=== PATIENT | female | born 1965 | race Caucasian/White ===

== ENCOUNTER 2024-06-19 22:54 | Inpatient (IN) | payer OTHER ==
[2024-06-19 23:18] LABS: Absolute Lymphocytes (CBC) 0.8 K/uL (0.7-4.9); Absolute Monocytes 0.7 K/uL (0.1-1.3); Basophils % 0.1 % (0-1.3); Eosinophils % 0.1 % (0-4.4); Hematocrit 26.5 % (36.0-45.0); Hemoglobin 8.7 g/dL (12.0-15.0); Lymphocytes % 6.2 % (15.3-44.8); MCH 30.4 pg (27.0-35.0); MCHC 32.9 g/dL (32.0-36.0); MCV 92.4 fL (80-100); MPV 8.7 fL (7.6-11.3); Monocytes % 5.5 % (3.3-12.3); Neutrophils % 88.1 % (41.7-73.7); Platelets 253 thou/uL (152-406); RBC Red Blood Cell Count 2.87 M/uL (3.86-4.86)
[2024-06-19 23:23] LABS: PT Prothrombin Time 11.1 SECONDS (9.4-12.5); PTT, Activated Partial Thromb 30.8 SECONDS (24.3-36.9); Protime INR 0.99
[2024-06-19] MEDS ORDERED: ONDANSETRON 4 MG/2 ML VIAL ONE (23:42)
[2024-06-19] MEDS ORDERED: NA CHLORIDE 0.9% 1,000 ML ONE (23:42)
[2024-06-19] MEDS ORDERED: FENTANYL CITR 100 MCG/2 ML ONE (23:44)
[2024-06-19 23:59] LABS: Albumin 3.5 g/dL (3.4-5.0); Albumin/Globulin Ratio 1.3 (1.1-1.8); Anion Gap 10.1 mEq/L (5.0-15.0); Bilirubin Direct 0.2 mg/dL (0-0.2); Bilirubin Indirect, Calculated 0.5 mg/dL (0.2-0.8); Bilirubin Total 0.7 mg/dL (0.2-1.0); Globulin 2.8 g/dL (2.3-3.5); Magnesium 2.1 mg/dL (1.6-2.4); Potassium 3.1 mEq/L (3.5-5.1); Protein, Total 6.3 g/dL (6.4-8.2); Troponin High Sensitivity 5.3 pg/mL (<58.9)
[2024-06-20] MEDS ORDERED: FENTANYL CITR 100 MCG/2 ML ONE (00:54)
[2024-06-20] MEDS ORDERED: POTASSIUM 25 MEQ EFFERV TAB ONE (00:55)
[2024-06-20 01:18] LABS: Band Neutrophils 10 % (0-1); Differential Total Cells Count 100; Lymphocytes 4 % (15-42); Monocytes 7 % (0-10); Segmented Neutrophils 79 % (40-80)
[2024-06-20 01:19] LABS: Blood Morphology Comment NOT SEEN (NOT SEEN); Platelet Estimate ADEQ
[2024-06-20] MEDS ORDERED: HYDROMORPHONE HCL 1 MG/ML INJ ONE (01:22)
[2024-06-20] MEDS ORDERED: ONDANSETRON 4 MG/2 ML VIAL IV PRN (01:24)
--- NOTE | 2024-06-20 01:24 | P.HP ---
Certification for Inpatient Patient admitted to: Inpatient With expected LOS: >2 Midnights Practitioner: I am a practitioner with admitting privileges, knowledge of patient current condition, hospital course, and medical plan of care. Services: Services provided to patient in accordance with Admission requirements found in Title 42 Section 412.3 of the Code of Federal Regulations Patient History Date of Service: 06/20/24 Reason for admission: History of fall History of Present Illness: 58-year-old female with past medical history of Stamford's chorea/disease who had a mechanical fall. Patient could not offer much history hence most of the history is obtained from chart review and also talking to the ER physician and the family at the bedside. Patient had a fall from standing position. Started having pain in her right hip. Family states that she was at home and fell by 7 PM and was found on ground complaining of right leg pain. Denies any chest pain or shortness of breath. No loss of consciousness denies any history of seizures Patient was assessed in the ER and was found to have Displaced intertrochanteric fracture of right femur-right and was admitted for further management . Allergies iodine Allergy (Mild, Verified 06/20/24 05:13) Rash Home medications list reviewed: Yes Home Medications: Rimegepant Sulfate [Nurtec Odt] 06/20/24 Rosuvastatin Calcium [Crestor] 06/20/24 - Past Medical/Surgical History Past Medical History: Reviewed- Non-Contributory -: Stamford disease Past Surgical History: Reviewed- Non-Contributory - Family History Family History: Reviewed- Non-Contributory - Social History Smoking Status: Never smoker Review of Systems 10-point ROS is otherwise unremarkable Physical Examination - Vital Signs Temperature: 97.2 F Blood Pressure: 140/64 Pulse: 72 Respirations: 18 Pulse Ox (%): 94 - Physical Exam General: Alert, Oriented x2, Moderate distress HEENT: Atraumatic, Normocephalic Neck: Supple Respiratory: Clear to auscultation bilaterally, Normal air movement Cardiovascular: Regular rate/rhythm, Normal S1 S2 Capillary refill: <2 Seconds Gastrointestinal: Soft and benign, W/out hepatosplenomegaly Musculoskeletal: No clubbing, No swelling, Tenderness Integumentary: No breakdown, No significant lesion Neurological: Other (Alert,Awake ) Lymphatics: No axilla or inguinal lymphadenopathy - Studies Laboratory Data (last 24 hrs) 06/19/24 06/19/24 06/19/24 23:02 23:02 23:02 WBC 13.60 H Hgb 8.7 L Hct 26.5 L Plt Count 253 PT 11.1 INR 0.99 APTT 30.8 Sodium 139 Potassium 3.1 L BUN 13 Creatinine 0.74 Glucose 172 H Magnesium 2.1 Total Bilirubin 0.7 AST 24 ALT 23 Alkaline Phosphatase 52 Assessment and Plan - Plan Displaced intertrochanteric fracture of right femur Pain control Orthopedic consultation Monitor closely Patient may need ORIF Stamford's disease Supportive management Continue home medications and titrate as needed Hypokalemia Replace potassium Leukocytosis Anemia of chronic disease Monitor CBC Transfuse as needed GI/DVT prophylaxis Advanced directive full code Discharge Plan: Home Plan to discharge in: Greater than 2 days - Advance Directives Does patient have a Living Will: No Does patient have a Durable POA for Healthcare: No - Code Status/Comfort Care Code Status: Full Code Time Spent Managing Pts Care (In Minutes): 48
--- NOTE | 2024-06-20 01:28 | ER ---
Nurse's Notes [facility] Name: Charissa Liz Age: 58 yrs Sex: Female : 1965 Arrival Date: 06/19/2024 Time: 22:54 Bed 4 Private MD: Diagnosis: Displaced intertrochanteric fracture of right femur-right;Fall on same level, unspecified Presentation: 06/19 23:16 Chief complaint: Patient's son or daughter states: She was at the house and fell jb4 between [id number]. We found her laying on the ground complaining of right leg pain. Care prior to arrival: None. Mechanism of Injury: Fall from standing position. Trauma event details: Injury occurred in the [facility]. 23:16 Acuity: HARRY 3 jb4 23:16 Method Of Arrival: Stretcher jb4 23:20 Coronavirus screen: At this time, the client does not indicate any symptoms associated jb4 with coronavirus-19. Ebola Screen: No symptoms or risks identified at this time. Initial Sepsis Screen: Does the patient meet any 2 criteria? HR > 90 bpm. Yes Does the patient have a suspected source of infection? No. Patient's initial sepsis screen is negative. Risk Assessment: Do you want to hurt yourself or someone else? Patient reports no desire to harm self or others. Onset of symptoms was June 19, 2024. 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 - Immunization history: Last tetanus immunization: unknown. - Infectious Disease History:: Denies. - Social history:: Smoking status: Patient denies any tobacco usage or history of. Screenin:30 [facility] ED Fall Risk Assessment (Adult) History of falling in the last 3 months, tm6 including since admission No falls in past 3 months (0 pts) Confusion or Disorientation No (0 pts) Intoxicated or Sedated No (0 pts) Impaired Gait No (0 pts) Mobility Assist Device Used No (0 pt) Altered Elimination No (0 pt) Score/Fall Risk Level 0 - 2 = Low Risk Oriented to surroundings, Maintained a safe environment, Educated pt \T\ family on fall prevention, incl call for assistance when getting out of bed. Abuse screen: Denies threats or abuse. Denies injuries from another. Nutritional screening: No deficits noted. Tuberculosis screening: No symptoms or risk factors identified. Primary Survey: 23:16 NO uncontrolled hemorrhage observed. A: The client is awake and alert. The airway is jb4 patent. Breathing/Chest: Spontaneous respiratory effort, equal unlabored respirations, breath sounds clear bilaterally, regular pattern, symmetrical chest rise and fall. Circulation: No external hemorrhage present. Regular and strong central pulse, skin warm/dry/normal color. Disability Pupils are equal, round, reactive to light and accommodation. Exposure/Environment: All clothing and personal items were removed. Clothing may be used as evidence. Items were removed and preserved. Secondary Survey: 23:16 HEENT: No deficits noted. Gastrointestinal: No deficits noted. : No signs and/or jb4 symptoms were reported regarding the genitourinary system. Musculoskeletal: Reports pain in right quadriceps. Assessment: 23:30 General: Appears in no apparent distress. Behavior is calm, cooperative. Pain: tm6 Complains of pain in right leg Pain currently is 10 out of 10 on a pain scale. Neuro: Level of Consciousness is awake, alert, obeys commands, Oriented to person, place, time, situation. Cardiovascular: No deficits noted. Patient's skin is warm and dry. Respiratory: Airway is patent Respiratory effort is even, unlabored, Respiratory pattern is regular, symmetrical. GI: No signs and/or symptoms were reported involving the gastrointestinal system. Abdomen is flat, non-distended. : No signs and/or symptoms were reported regarding the genitourinary system. EENT: No signs and/or symptoms were reported regarding the EENT system. Derm: No signs and/or symptoms reported regarding the dermatologic system. Musculoskeletal: Reports pain in right leg Pain is 10 out of 10 on a pain scale. 06/20 01:08 Reassessment: Patient appears in no apparent distress at this time. Patient and/or tm6 family updated on plan of care and expected duration. Pain level reassessed. Patient is alert, oriented x 3, equal unlabored respirations, skin warm/dry/pink. 03:09 Reassessment: Patient and/or family updated on plan of care and expected duration. Pain tm6 level reassessed. Patient is alert, oriented x 3, equal unlabored respirations, skin warm/dry/pink. report sent to [facility], confirmed by [place]. 03:09 Reassessment: purewick placed. tm6 Vital Signs: 06/19 20:45 BP 141 / 62; Pulse 109; Resp 16; Temp 99.4(O); Pulse Ox 100% on R/A; Weight 54.43 kg jb4 (R); Height 5 ft. 6 in. ; Pain 10/10; 06/20 01:07 BP 140 / 63; Pulse 106; Resp 16; Pulse Ox 100% on R/A; Pain 10/10; tm6 02:58 BP 111 / 58; Pulse 79; Resp 12; Pulse Ox 96% on R/A; Pain 0/10; tm6 06/19 20:45 Body Mass Index 19.37 (54.43 kg, 167.64 cm) jb4 06/19 20:45 Pain Scale: Adult jb4 06/20 01:07 Pain Scale: Adult tm6 02:58 Pain Scale: Adult tm6 Maynard Coma Score: 06/19 20:45 Eye Response: spontaneous(4). Motor Response: obeys commands(6). Verbal Response: jb4 oriented(5). Total: 15. Trauma Score (Adult): 20:45 Eye Response: spontaneous(1); Verbal Response: oriented(1); Motor Response: obeys jb4 commands(2); Systolic BP: > 89 mm Hg(4); Respiratory Rate: 10 to 29 per min(4); Lashell Score: 15; Trauma Score: 12 ED Course: 22:56 Patient arrived in ED. ra3 22:58 Rashid Kelly PA is PHCP. cp 22:58 Alex Verduzco MD is Attending Physician. cp 23:05 Inserted saline lock: 20 gauge in right antecubital area, using aseptic technique. af3 Blood collected. Flushed with 10 mL NS. 23:05 Ptt, Activated Sent. af3 23:05 Basic Metabolic Panel Sent. af3 23:05 CBC with Diff Sent. af3 23:05 LFT's Sent. af3 23:05 Magnesium Sent. af3 23:05 PT-INR Sent. af3 23:05 Troponin HS Sent. af3 23:18 Triage completed. jb4 23:21 Arm band placed on right wrist. jb4 23:30 Patient has correct armband on for positive identification. Bed in low position. Call tm6 light in reach. Side rails up X2. Provided Education on: use of call prado. Client placed on continuous cardiac and pulse oximetry monitoring. NIBP monitoring applied. Pulse ox on. NIBP on. tellers supervisor on. Door closed. Noise minimized. Warm blanket given. Pillow given. 23:52 XRAY Chest (1 view) In Process Unspecified. EDMS 23:52 XRAY Pelvis In Process Unspecified. EDMS 23:52 XRAY Femur RIGHT In Process Unspecified. EDMS 23:57 CT Head C Spine In Process Unspecified. EDMS 23:58 Marina Penaloza, LÁZARO is Primary Nurse. 6 06/20 01:26 Oswaldo Diallo MD is Hospitalizing Provider. cp 03:10 No provider procedures requiring assistance completed. Patient admitted, IV remains in [address] Administered Medications: 06/19 23:44 Not Given (Physician Discretion): morphineor iv 4 mg IVP once over 4 mins cp 23:49 Drug: fentaNYL (PF) IVP 25 mcg IVP once Route: IVP; Site: right antecubital; [facility] 06/20 01:03 Follow up: Response: No adverse reaction tm6 06/19 23:50 Drug: Ondansetron IVP 4 mg IVP once; over 2 minutes Route: IVP; Site: right antecubital;[facility] 06/20 01:03 Follow up: Response: No adverse reaction tm6 00:30 Drug: NS 0.9% IV 1000 ml IV at 500 ml/hr Per protocol Route: IV; Rate: 500 ml/hr; Site: [facility] right antecubital; 03:10 Follow up: Response: No adverse reaction; IV Status: Completed infusion; IV Intake: tm6 1000ml 01:02 Drug: fentaNYL (PF) IVP 25 mcg IVP once Route: IVP; Site: right antecubital; 6 01:25 Follow up: Response: No adverse reaction; No change in condition tm6 01:03 Drug: Potassium PO Effervescent Tablet 50 mEq PO once; dissolve in 4 ounces of water or tm6 juice Route: PO; 01:25 Follow up: Response: No adverse reaction tm6 01:31 Drug: HYDROmorphone IVP 1 mg IVP once Route: IVP; Site: right antecubital; 6 02:14 Follow up: Response: No adverse reaction; Marked relief of symptoms; Pain is decreased tm6 Medication: 06/19 23:30 VIS not applicable for this client. tm6 Intake: 06/20 03:10 IV: 1000ml; Total: 1000ml. tm6 Outcome: 01:27 Decision to Hospitalize by Provider. cp 03:10 Admitted to Med/surg accompanied by nurse, via stretcher, room 404, tm6 03:10 Condition: stable 03:10 Instructed on the need for admit, 03:25 Patient left the ED. tm6 Signatures: Dispatcher [employer] EDMS Rashid Kelly PA PA cp Bryson, James, RN RN jb4 Marina Penaloza RN RN tm6 Sandy Mccain ra3 Andreina Liu3 Corrections: (The following items were deleted from the chart) 06/19 23:20 23:16 BP 141 / 62; Pulse 109bpm; Resp 16bpm; Pulse Ox 100% RA; Temp 99.4F Oral; 54.43 jb4 kg Reported; Height 5 ft. 6 in.; BMI: 19.3; Pain 10/10, Adult; jb4 23:20 23:16 Lashell Score=15, Trauma Score=12, jb4 jb4 23:20 23:16 GCS: 15, jb4 jb4
--- NOTE | 2024-06-20 01:28 | EDPHYS ---
Physician Documentation [facility] Name: Charissa Liz Age: 58 yrs Sex: Female : 1965 Arrival Date: 06/19/2024 Time: 22:54 Bed 4 Private MD: ED Physician Alex Verduzco HPI: 06/20 23:10 This 58 yrs old Female presents to ER via Stretcher with complaints of Fall Injury - cp LOC. 23:10 Details of fall: The patient fell from an upright position, while walking. Onset: The cp symptoms/episode began/occurred this evening, unwitnessed fall. 23:10 Associated injuries: The patient sustained right upper leg, decreased range of motion, cp painful injury. 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 - Immunization history: Last tetanus immunization: unknown. - Infectious Disease History:: Denies. - Social history:: Smoking status: Patient denies any tobacco usage or history of. ROS: 23:15 Constitutional: Negative for body aches, chills, fever, poor PO intake, cp 23:15 Eyes: Negative for injury, pain, redness, and discharge, cp 23:15 Neck: Negative for pain with movement, pain at rest, stiffness, 23:15 Cardiovascular: Negative for chest pain, 23:15 Respiratory: Negative for cough, shortness of breath, wheezing, 23:15 Abdomen/GI: Negative for abdominal pain, vomiting, diarrhea, constipation, 23:15 MS/extremity: Positive for decreased range of motion, pain, of the right upper leg, 23:15 Neuro: Positive for loss of consciousness, 23:15 All other systems are negative, Exam: 23:20 Constitutional: The patient appears in no acute distress, alert, awake, cp non-diaphoretic, non-toxic, well developed, well nourished, in obvious pain, uncomfortable, 23:20 Head/Face: Normocephalic, atraumatic. cp 23:20 Eyes: Periorbital structures: appear normal, Conjunctiva: normal, no exudate, no injection, Sclera: no appreciated abnormality, Lids and lashes: appear normal, bilaterally, 23:20 ENT: External ear(s): are unremarkable, Nose: is normal, Mouth: Lips: moist, Oral mucosa: pink and intact, moist, Posterior pharynx: is normal, airway is patent, no erythema, no exudate, 23:20 Chest/axilla: Inspection: normal, Palpation: is normal, no crepitus, no tenderness, 23:20 Cardiovascular: Rate: tachycardic, Rhythm: regular, Edema: is not appreciated, JVD: is not appreciated, 23:20 Respiratory: the patient does not display signs of respiratory distress, Respirations: normal, no use of accessory muscles, no retractions, labored breathing, is not present, Breath sounds: are clear throughout, no decreased breath sounds, no stridor, no wheezing, 23:20 Abdomen/GI: Inspection: abdomen appears normal, Palpation: abdomen is soft and non-tender, in all quadrants, 23:20 Back: vertebral tenderness, is not appreciated, 23:20 Musculoskeletal/extremity: Extremities: noted in the right upper leg: decreased ROM, deformity, pain, tenderness, 23:20 Neuro: Orientation: no acute changes, per family, Mentation: no acute changes, per family, Motor: moves all fours, Sensation: no obvious gross deficits, Vital Signs: 20:45 BP 141 / 62; Pulse 109; Resp 16; Temp 99.4(O); Pulse Ox 100% on R/A; Weight 54.43 kg jb4 (R); Height 5 ft. 6 in. ; Pain 10/10; 06/20 01:07 BP 140 / 63; Pulse 106; Resp 16; Pulse Ox 100% on R/A; Pain 10/10; tm6 02:58 BP 111 / 58; Pulse 79; Resp 12; Pulse Ox 96% on R/A; Pain 0/10; tm6 06/19 20:45 Body Mass Index 19.37 (54.43 kg, 167.64 cm) [facility] 06/19 20:45 Pain Scale: Adult jb4 06/20 01:07 Pain Scale: Adult tm6 02:58 Pain Scale: Adult tm6 Lashell Coma Score: 06/19 20:45 Eye Response: spontaneous(4). Motor Response: obeys commands(6). Verbal Response: jb4 oriented(5). Total: 15. Trauma Score (Adult): 20:45 Eye Response: spontaneous(1); Verbal Response: oriented(1); Motor Response: obeys jb4 commands(2); Systolic BP: > 89 mm Hg(4); Respiratory Rate: 10 to 29 per min(4); Lashell Score: 15; Trauma Score: 12 MDM: 23:02 Patient medically screened. cp 06/20 00:36 ED course: msg left on voicemail of DR Ruff concerning right hip fracture for consult. cp no answer. 01:14 ED course: msg left on voicemail of DR Ruff for consult. no answer. cp 01:30 Data reviewed: vital signs, nurses notes, lab test result(s), radiologic studies, CT cp scan, plain films, I have discussed the patient's presentation/case with the attending Emergency Department Physician; and as a result, I will admit patient, initiate a consult, with an orthopedic surgeon. 01:30 Differential diagnosis: closed head injury, contusion, fracture, multiple trauma. cp Management of patient was discussed with the following: Hospitalist: DR Diallo will admit after discussion. I considered the following discharge prescriptions or medication management in the emergency department Medications were administered in the Emergency Department. See MAR. Independent interpretation of the following test(s) in the Emergency Department EKG: See my EKG interpretation above. 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 Counseling: I had a detailed discussion with the patient and/or guardian regarding the historical points, exam findings, and any diagnostic results supporting the discharge/admit diagnosis, lab results, radiology results, the need for further work-up and treatment in the hospital. 06/19 23:01 Order name: Basic Metabolic Panel; Complete Time: 00:48 cp 06/20 00:49 Interpretation: Normal except: K 3.1; GLUC 172. cp 06/19 23:01 Order name: CBC with Diff; Complete Time: 01:21 cp 06/20 00:49 Interpretation: Normal except: WBC 13.60; RBC 2.87; HGB 8.7; HCT 26.5; AMAYA% 88.1; LYM% cp 6.2; NEUT A 12.0. 06/19 23:01 Order name: LFT's; Complete Time: 00:48 cp 06/20 00:49 Interpretation: Normal except: TP 6.3. cp 06/19 23:01 Order name: Magnesium; Complete Time: 00:48 cp 06/19 23:01 Order name: PT-INR; Complete Time: 00:48 cp 06/19 23:01 Order name: Troponin HS; Complete Time: 00:48 cp 06/19 23:01 Order name: Ptt, Activated; Complete Time: 00:48 cp 06/19 23:25 Order name: Manual Differential; Complete Time: 01:21 EDMS 06/20 01:29 Order name: Urinalysis w/ reflexes EDMS 06/20 01:29 Order name: CBC with Automated Diff EDMS 06/20 01:29 Order name: CBC with Automated Diff EDMS 06/20 01:29 Order name: Comprehensive Metabolic Panel EDMS 06/20 01:29 Order name: Comprehensive Metabolic Panel EDMS 06/19 23:01 Order name: XRAY Chest (1 view) cp 06/19 23:01 Order name: XRAY Pelvis cp 06/19 23:01 Order name: XRAY Femur RIGHT cp 06/19 23:02 Order name: CT Head C Spine cp 06/20 01:29 Order name: CONS Physician Consult EDMS 06/19 23:01 Order name: Cardiac monitoring; Complete Time: 23:05 cp 06/19 23:01 Order name: EKG - Nurse/Tech; Complete Time: 23:05 cp 06/19 23:01 Order name: IV Saline Lock; Complete Time: 23:05 cp 06/19 23:01 Order name: Labs collected and sent; Complete Time: 23:05 cp 06/19 23:01 Order name: O2 Per Protocol; Complete Time: 23:33 cp 06/19 23:01 Order name: O2 Sat Monitoring; Complete Time: 23:33 cp Administered Medications: 06/19 23:44 Not Given (Physician Discretion): morphineor iv 4 mg IVP once over 4 mins cp 23:49 Drug: fentaNYL (PF) IVP 25 mcg IVP once Route: IVP; Site: right antecubital; jb4 06/20 01:03 Follow up: Response: No adverse reaction tm6 06/19 23:50 Drug: Ondansetron IVP 4 mg IVP once; over 2 minutes Route: IVP; Site: right antecubital;jb4 06/20 01:03 Follow up: Response: No adverse reaction tm6 00:30 Drug: NS 0.9% IV 1000 ml IV at 500 ml/hr Per protocol Route: IV; Rate: 500 ml/hr; Site: tm6 right antecubital; 03:10 Follow up: Response: No adverse reaction; IV Status: Completed infusion; IV Intake: tm6 1000ml 01:02 Drug: fentaNYL (PF) IVP 25 mcg IVP once Route: IVP; Site: right antecubital; tm6 01:25 Follow up: Response: No adverse reaction; No change in condition tm6 01:03 Drug: Potassium PO Effervescent Tablet 50 mEq PO once; dissolve in 4 ounces of water or tm6 juice Route: PO; 01:25 Follow up: Response: No adverse reaction tm6 01:31 Drug: HYDROmorphone IVP 1 mg IVP once Route: IVP; Site: right antecubital; tm6 02:14 Follow up: Response: No adverse reaction; Marked relief of symptoms; Pain is decreased tm6 Disposition Summary: 06/20/24 01:27 Hospitalization Ordered Notes: Hospitalization Status: Inpatient Admission cp Provider: Oswaldo Diallo cp Location: Telemetry/MedSurg (Inpatient) cp Condition: Stable cp Problem: new cp Symptoms: have improved cp Bed/Room Type: Standard cp Room Assignment: 404(06/20/24 01:47) kl Diagnosis - Displaced intertrochanteric fracture of right femur - right cp - Fall on same level, unspecified cp Forms: - Medication Reconciliation Form cp - SBAR form cp - Leadership Thank You Letter cp Addendum: 06/28/2024 01:14 I was immediately available for consultation during this patient's visit. I did not e c2 personally see the patient or discuss the patient with the JON. . Signatures: Dispatcher [employer] Libia East RN RN Rashid Ascencio PA PA cp Bryson, James, RN RN jb4 Alex Verduzco MD MD ec2 Marina Penaloza RN RN tm6 Corrections: (The following items were deleted from the chart) 06/20 01:15 00:36 ED course: msg left on voicemail of DR Ruff concerning right hip fracture. cp cp 01:47 01:27 cp anita
[2024-06-20 04:09] VITALS: BMI 16.9
[2024-06-20] MEDS: NA CHLORIDE 0.9% 1,000 ML IV SCH (04:51)
[2024-06-20] MEDS: MORPHINE 2 MG/ML SYR IV PRN (07:05)
--- NOTE | 2024-06-20 09:20 | CON ---
Date of Consultation: 06/20/2024 Reason For Consultation: Right hip pain. History Of Present Illness: Charissa is a 58-year-old female with past medical history of Catron's disease presented to the ER last night after a fall onto her right side and subsequently inability to bear weight. The patient states that she is normally ambulatory after the fall. She reported increased pain to the right hip and inability to ambulate. She was brought to the procedure room and had x-rays that mass demonstrated right intertrochanteric femur fracture. The patient denies any other musculoskeletal complaints at this time. Review of Systems: As above, otherwise negative. Past Medical History: Includes Catron's disease. Family History: Reviewed and noncontributory. Social History: Denies tobacco abuse. Lives at home. Physical Examination: General: No apparent distress. HEENT: Normocephalic, atraumatic. Neck: Supple. Cardiovascular: Brisk cap refill to all digits. Chest: Nonlabored breathing. Abdomen: Nondistended. Psychiatric: Responsive to exam. Musculoskeletal: Right lower extremity, tenderness to palpation over the right hip. Pain with range of motion of the right hip without tenderness over the knee, tibia, foot, or ankle. Sensation grossly intact to the dorsal and plantar foot. Brisk cap refill distally. Positive firing of EPL and FPL. Left lower extremity, functional range of motion without pain. No gross deformities. No obvious dislocations. Bilateral upper extremities, functional range of motion without pain. No gross deformities. No obvious dislocations. Diagnostic Studies: X-rays of the right femur demonstrate displaced intertrochanteric femur fracture. Assessment And Plan: Charissa is a 58-year-old female with right subtrochanteric femur fracture. I discussed with the patient at length her diagnosis as well as treatment plan. Given her displaced unstable fracture pattern, recommended surgical fixation of intramedullary device. Risks and benefits associated with the procedure were discussed with the patient at length and she expressed understanding. We will proceed with surgical fixation tomorrow as the patient does have some underlying electrolyte abnormalities as well as anemia. We will await medical clearance to proceed. CV/MODL Voice ID: [id number] Report ID: [id number] ARIK
[2024-06-20] MEDS: HYDROCODONE/APAP 5/325 MG TAB PO PRN (09:52)
[2024-06-20] MEDS ORDERED: POTASSIUM CL 40 MEQ in NA CHLORIDE 0.9% 500 ML IV SCH (10:00)
[2024-06-20] MEDS: KCL 20 MEQ/100 mL IVPB 20 MEQ/100 ML BAG IV SCH (10:38)
[2024-06-20] MEDS: ENOXAPARIN 40 MG/0.4 ML SQ SCH (10:42)
--- NOTE | 2024-06-20 14:06 | EKG ---
Test Date: 2024-06-20 Test Time: 02:48:51 Container Repairer: MEASUREMENT RESULTS: Intervals: Rate: 83 WA: 132 QRSD: 76 QT: 364 QTc: 427 [place]: P: 68 WA: 132 QRS: 62 T: 43 INTERPRETIVE STATEMENTS: Normal sinus rhythm Normal ECG Compared to ECG 11/15/2014 16:10:25 No significant changes Electronically Signed On 06-20-24 14:05:10 CDT by Chucky Ac
--- NOTE | 2024-06-20 14:50 | RAD REPORT ---
EXAM DESCRIPTION: CT - Head C Spine Mpr Wo Con - 06/19/2024 11:55 pm CLINICAL HISTORY: Fall COMPARISON: None. TECHNIQUE: CT HEAD AND CERVICAL SPINE WITHOUT CONTRAST on 06/19/2024 11:02 PM CDT This exam was performed according to our departmental dose-optimization program, which includes autom ated exposure control, adjustment of the mA and/or kV according to patient size and/or use of iterati ve reconstruction technique. FINDINGS: Brain: There is no acute hemorrhage, mass effect or midline shift. -white differentiat ion is preserved. There is no hydrocephalus. There is no significant volume loss for age. The calvarium is intact. Orbits and globes are unremarkable. The paranasal sinuses are clear. Mastoid air cells are clear. Cervical Spine: There is no acute fracture. Alignment is anatomic. There is mild bilateral upper cerv ical facet arthritis. There is mild narrowing of the C6-7 disc. Vertebral body heights are preserved. Soft tissues are unre markable. IMPRESSION: No acute postraumatic findings. Electronically signed by: Frank Singh MD 06/20/2024 12:37 AM CDT Due to temporary technical issues with the PACS/Fluency reporting system, reports are being signed by the in house radiologists without review as a courtesy to insure prompt reporting. The interpreting radiologist is fully responsible for the content of the report.
--- NOTE | 2024-06-20 15:09 | P.PN ---
Subjective Date of Service: 06/20/24 Chief Complaint: History of fall Patient complaining of pain in her right hip. Right hip is swollen. Physical Examination - Vital Signs Temperature: 99 F Blood Pressure: 139/67 Pulse: 89 Respirations: 16 Pulse Ox (%): 96 - Studies Laboratory Data (last 24 hrs) 06/19/24 06/19/24 06/19/24 23:02 23:02 23:02 WBC 13.60 H Hgb 8.7 L Hct 26.5 L Plt Count 253 PT 11.1 INR 0.99 APTT 30.8 Sodium 139 Potassium 3.1 L BUN 13 Creatinine 0.74 Glucose 172 H Magnesium 2.1 Total Bilirubin 0.7 AST 24 ALT 23 Alkaline Phosphatase 52 Assessment And Plan - Plan Physical examination General: Alert and oriented x3, NAD, HEENT: Conjunctiva not pale, anicteric sclera Neck: Supple, no elevated JVD Heart: Heart sounds 1 and 2 normal, regular rhythm, normal rate, no pedal edema Lungs: Clear to auscultation bilaterally, adequate breath sounds bilaterally, no rhonchi or crackles. Abdomen: Soft, nondistended, nontender, normal bowel sounds. Extremities: lateral aspect of right hip is swollen and tender. Skin: Normal skin turgor, no rash, no nodules or ulcers. Neuro: No focal motor deficit. Normal speech. Psychiatry: Dysphoric. Assessment and plan Displaced intertrochanteric fracture of right femur Patient seen and evaluated by orthopedic Dr. Speedy Ruff is planning ORIF tomorrow. Analgesics as needed Optimize electrolytes [place]'s disease Supportive measures Continue home medications. Hypokalemia Replace potassium Leukocytosis Anemia of chronic disease Monitor CBC Transfuse as needed for hemoglobin less than 8. DVT prophylaxis: Lovenox Advanced directive: full code
[2024-06-21 07:48] LABS: Absolute Lymphocytes (CBC) 0.8 K/uL (0.7-4.9); Absolute Monocytes 0.7 K/uL (0.1-1.3); Absolute Neutrophil 5.4 K/uL (1.8-8.0); Basophils % 0.4 % (0-1.3); Eosinophils % 0.5 % (0-4.4); Hematocrit 21.5 % (36.0-45.0); Hemoglobin 7.1 g/dL (12.0-15.0); MCH 30.6 pg (27.0-35.0); MCHC 33.1 g/dL (32.0-36.0); MCV 92.4 fL (80-100); MPV 8.1 fL (7.6-11.3); Monocytes % 10.5 % (3.3-12.3); Neutrophils % 77.6 % (41.7-73.7); Platelets 209 thou/uL (152-406); RBC Red Blood Cell Count 2.33 M/uL (3.86-4.86); Red Cell Distribution Width 14.5 % (12.1-15.2)
[2024-06-21 08:08] LABS: Albumin 2.8 g/dL (3.4-5.0); Bilirubin Total 1.2 mg/dL (0.2-1.0); Globulin 2.8 g/dL (2.3-3.5); Protein, Total 5.6 g/dL (6.4-8.2)
[2024-06-21] MEDS ORDERED: NA CHLORIDE 0.9% 250 ML IV SCH (10:00)
--- NOTE | 2024-06-21 13:22 | P.PN ---
Subjective Date of Service: 06/21/24 Chief Complaint: History of fall Patient has no new complaint She states her pain is well-controlled. Physical Examination - Vital Signs Temperature: 97.5 F Blood Pressure: 129/58 Pulse: 89 Respirations: 12 Pulse Ox (%): 97 Assessment And Plan - Plan Physical examination General: Alert and oriented x3, NAD, Neck: Supple, no elevated JVD Heart: Heart sounds 1 and 2 normal, regular rhythm, normal rate, no pedal edema Lungs: Clear to auscultation bilaterally, adequate breath sounds bilaterally, no rhonchi or crackles. Abdomen: Soft, nondistended, nontender, normal bowel sounds. Skin: Normal skin turgor, no rash, no nodules or ulcers. Neuro: No focal motor deficit. Assessment and plan Displaced intertrochanteric fracture of right femur Orthopedic Dr. Ruff is following. Dr. Ruff is planning ORIF tomorrow as no anesthesiologist available today Analgesics as needed Optimize electrolytes [place]'s disease Supportive measures Continue home medications. Hypokalemia Replace potassium Leukocytosis Anemia of chronic disease Monitor CBC Transfuse PRBC today, target hemoglobin of greater than 8. DVT prophylaxis: Lovenox Advanced directive: full code
[2024-06-21] MEDS: HEPARIN 5000 UNIT/ML 1 ML VIAL SQ SCH (14:43)
[2024-06-21 18:06] LABS: Hematocrit 29.5 % (36.0-45.0); Hemoglobin 9.9 g/dL (12.0-15.0)
--- NOTE | 2024-06-21 20:10 | RAD REPORT ---
EXAM DESCRIPTION: RAD - Femur Right - 06/19/2024 11:50 pm CLINICAL HISTORY: Fall COMPARISON: None. TECHNIQUE: XR FEMUR 2 VIEWS RIGHT 06/19/2024 11:01 PM CDT FINDINGS: There is a comminuted intertrochanteric fracture of the right femur with mild angulation. Joint spaces are preserved. Soft tissues are unremarkable. IMPRESSION: Proximal right femur fracture. Electronically signed by: Frank Singh MD 06/20/2024 12:37 AM CDT RP Due to temporary technical issues with the PACS/Fluency reporting system, reports are being signed by the in house radiologists without review as a courtesy to insure prompt reporting. The interpreting radiologist is fully responsible for the content of the report.
--- NOTE | 2024-06-21 20:19 | RAD REPORT ---
EXAM DESCRIPTION: RAD - Pelvis - 06/19/2024 11:50 pm CLINICAL HISTORY: Fall COMPARISON: None. TECHNIQUE: XR PELVIS 1-2 VIEWS 06/19/2024 11:01 PM CDT FINDINGS: There is a comminuted intertrochanteric fracture of the right femur with angulation. Joint spaces are preserved. Soft tissues are unremarkable. IMPRESSION: Angulated right femoral fracture proximally. Electronically signed by: Frank Singh MD 06/20/2024 12:38 AM CDT RP Due to temporary technical issues with the PACS/Fluency reporting system, reports are being signed by the in house radiologists without review as a courtesy to insure prompt reporting. The interpreting radiologist is fully responsible for the content of the report.
--- NOTE | 2024-06-21 20:24 | RAD REPORT ---
EXAM DESCRIPTION: RAD - Chest Single View - 06/19/2024 11:50 pm CLINICAL HISTORY: Fall COMPARISON: None. TECHNIQUE: XR CHEST 1 VIEW 06/19/2024 11:01 PM CDT FINDINGS: Cardiac silhouette is normal in size. Lungs are clear without consolidation, atelectasis, mass or edema. There is no pleural effusion. There is no pneumothorax. There are no acute osseous fin dings. IMPRESSION: Clear lungs. Electronically signed by: Frank Singh MD 06/20/2024 12:33 AM CDT RP Due to temporary technical issues with the PACS/Fluency reporting system, reports are being signed by the in house radiologists without review as a courtesy to insure prompt reporting. The interpreting radiologist is fully responsible for the content of the report.
[2024-06-21 22:49] LABS: Urine Bilirubin NEGATIVE (Negative); Urine Blood Negative (Negative); Urine Clarity Clear (Clear); Urine Color Light-Yellow (Yellow); Urine Glucose NEGATIVE (Negative); Urine Ketones 1+ (Negative); Urine Microscopic Reflex YN NO UMIC; Urine Nitrite NEGATIVE (Negative); Urine Protein NEGATIVE (Negative); Urine Urobilinogen Normal (Normal); Urine pH 6.5 (5.0-7.0)
[2024-06-22] MEDS: CEFAZOLIN SODIUM 1 GM/VIAL ONE (09:00)
[2024-06-22] MEDS: TRANEXAMIC ACID 1,000 MG/10 ML VIAL IV ONE (09:01)
[2024-06-22] MEDS: LIDOCAINE HCL/EPINEPHRINE 20 ML MDV ONE (09:01)
[2024-06-22] MEDS: SUCCINYLCHOLINE 20 MG/ML (10 ML) IV ONE (09:14)
[2024-06-22] MEDS ORDERED: propofoL 200 MG/20 ML VIAL IV ONE (09:17)
[2024-06-22] MEDS ORDERED: MIDAZOLAM HCL 2 MG/2 ML INJ ONE (09:17)
[2024-06-22] MEDS ORDERED: FENTANYL CITR 100 MCG/2 ML ONE (09:17)
[2024-06-22] MEDS: Ringers Lactate 1,000 ML IV ONE (09:50)
[2024-06-22] MEDS: dexAMETHasone 4 MG/ML VIAL ONE (11:05)
[2024-06-22] MEDS: ONDANSETRON 4 MG/2 ML VIAL ONE (11:05)
--- NOTE | 2024-06-22 11:05 | P.BOP ---
Preoperative diagnosis: right intertrochanteric femur fracture Postoperative diagnosis: same Primary procedure: cephallomedullary fixation of right intertrochanteric femur fracture Distribution Specialist: NONE,NONE Estimated blood loss: 50 cc Specimen: none Findings: see dictation Anesthesia: General Complications: None Implants: 9 x 180 mm 125 degree Biomet Affixus nail, 75 mm lag screw Fluids & blood products: per anesthesia record Transferred to: Recovery Room Condition: Good
--- NOTE | 2024-06-22 11:16 | P.OP ---
Preoperative diagnosis: right intertrochanteric femur fracture Postoperative diagnosis: same Primary procedure: cephallomedullary fixation of right intertrochanteric femur fracture Anesthesia: general Estimated blood loss: 50 cc Specimen: none Findings: see dictation Operative Technique: Indication For Procedure: Charissa is a 58-year-old female, who presented to the ER after sustaining a fall onto her right side with subsequent pain and inability to bear weight. X-rays of the right hip demonstrated a right intertrochanteric femur fracture. I discussed with the patient and family at length risks and benefits associated with operative and nonoperative treatment measures. Given her displaced unstable fracture pattern, I recommended surgical fixation with a cephalomedullary device. Risks and benefits associated with the procedure were discussed with the patient at length and she expressed understanding and elected proceed with operative treatment. Description Of Procedure: After informed consent was obtained, the patient was identified in the preoperative holding area. The right lower extremity was marked. The patient was then brought back to the operating room, transferred to the operating table in supine fashion, placed under general LMA anesthesia. The right lower extremity was then prepped and draped in usual sterile fashion. A time-out was initiated. Correct patient and procedure were confirmed and identified. The patient did receive her preoperative prophylactic antibiotics. The patient was placed on the fracture table with her extremities well padded. Fluoroscopy was used to ensure proper reduction of the fracture was obtained prior surgical prepping. Approximately, a 5 cm longitudinal incision was made just proximal to the greater trochanter. Dissection was taken down to the tensor fascia anni. A guide pin was then placed on the tip of the greater trochanter and placed on the proximal femur in an antegrade fashion. Proper positioning was confirmed using fluoroscopy in both AP and lateral views. Anterior reamer was then placed over the guide pin followed by a ball-tipped guidewire down the femoral canal to the distal femur. The femoral canal was then reamed sequentially from starting an 8 mm reamer to a size 11 mm reamer. After this was performed and reduction head was evaluated on fluoroscopy, it was determined that an 9 x 180 mm nail at 125 degrees would help hold the fixation appropriately. The implant was then placed over the guidewire and put into position. Proper placement of the implant was confirmed using fluoroscopy. A guidewire was then placed into the femoral head and neck in a center-center position confirming with fluoroscopy. A second guide pin was placed to minimize any rotation of the femoral head and neck with placement of the lag screw. After the ball-tipped guidewire was removed, a 75 mm lag screw was then placed and a distal interlocking screw was placed using the implant jig. The jig was then removed. Formal x-rays were then taken both AP and lateral views to confirm reduction of the fracture as well as overall good position of the hardware. Wounds were then irrigated thoroughly with normal saline. Deep tissue was approximated using 0 Vicryl. Subcutaneous tissue was approximated using a 2-0 Vicryl. Skin was approximated using hawa. Sterile dressings were applied. The patient was awakened and transferred to PACU in stable condition. Postoperative Plan: The patient will be touch down weightbearing on right lower extremity. Physical Therapy will be consulted to aid with mobilization. Garment Cutter will be consulted to aid with patient placement. Complications: None Implants: 9x180 mm Biomet Affixus nail, 75 mm lag screw, 30 mm distal screw Fluids & blood products: per anesthesia record Transferred to: Recovery Room Condition: Good
--- NOTE | 2024-06-22 11:16 | RAD REPORT ---
EXAM DESCRIPTION: - Hip in OR Right 2 View - 06/22/2024 10:54 am CLINICAL HISTORY: rt hip rodding COMPARISON: No comparisons FINDINGS/IMPRESSION: Eighteen intraoperative fluoroscopic images were submitted from a right hip TRISH F. No radiologist was available for the procedure, nor will any image interpretation be provided. Roe zuniga refer to the procedural report for additional details Fluoro time: 1.8 minutes Cumulative dose: 9.63 mGy
[2024-06-22] MEDS: KETOROLAC 30 MG/ML INJ ONE (11:20)
[2024-06-22] MEDS: FENTANYL CITR 100 MCG/2 ML ONE (11:20)
[2024-06-22 11:54] LABS: Hematocrit 28.1 % (36.0-45.0); Hemoglobin 9.3 g/dL (12.0-15.0)
--- NOTE | 2024-06-22 12:11 | RAD REPORT ---
EXAM DESCRIPTION: RAD - Hip Right 2 View - 06/22/2024 12:01 pm CLINICAL HISTORY: postop COMPARISON: No comparisons FINDINGS/IMPRESSION: Status post right hip ORIF. No hardware complications. The hardware is intact. The right hip is located . Alignment is improved.
--- NOTE | 2024-06-22 12:11 | RAD REPORT ---
EXAM DESCRIPTION: RAD - Knee Right 2 View - 06/22/2024 12:01 pm CLINICAL HISTORY: pain COMPARISON: No comparisons FINDINGS/IMPRESSION: No acute fracture. No malalignment. Mild medial compartment narrowing. Dorsal d efect of the patella noted.
[2024-06-22] MEDS: CEFAZOLIN 1 GM in NA CHLORIDE 0.9% 50 ML IVPB SCH (14:28)
--- NOTE | 2024-06-22 14:56 | P.PN ---
Subjective Date of Service: 06/22/24 Chief Complaint: History of fall Status post ORIF today. Physical Examination - Vital Signs Temperature: 98.5 F Blood Pressure: 145/53 Pulse: 94 Respirations: 17 Pulse Ox (%): 100 Assessment And Plan - Plan Physical examination General: Alert and oriented x3, NAD, Neck: No elevated JVD Heart: Heart sounds 1 and 2 normal, regular rhythm, normal rate, no pedal edema Lungs: Clear to auscultation bilaterally, adequate breath sounds bilaterally, no rhonchi or crackles. Abdomen: Soft, nondistended, nontender, normal bowel sounds. Skin: Normal skin turgor, no rash, no nodules or ulcers. Neuro: No focal motor deficit. Assessment and plan Displaced intertrochanteric fracture of right femur Orthopedic Dr. Ruff is following. Status post ORIF Analgesics as needed Optimize electrolytes. PT. Raffy's disease Supportive measures Continue home medications. Hypokalemia Replace potassium Leukocytosis Anemia of chronic disease Leukocytosis resolved Monitor CBC Status post 1 unit PRBC transfusion DVT prophylaxis: Lovenox Advanced directive: full code
[2024-06-23 05:56] LABS: Absolute Lymphocytes (CBC) 1.1 K/uL (0.7-4.9); Absolute Monocytes 1.2 K/uL (0.1-1.3); Absolute Neutrophil 7.5 K/uL (1.8-8.0); Basophils % 0.2 % (0-1.3); Eosinophils % 0.3 % (0-4.4); Hematocrit 24.3 % (36.0-45.0); Hemoglobin 8.4 g/dL (12.0-15.0); Lymphocytes % 11.5 % (15.3-44.8); MCH 30.8 pg (27.0-35.0); MCHC 34.3 g/dL (32.0-36.0); MCV 89.6 fL (80-100); MPV 8.8 fL (7.6-11.3); Nucleated Red Blood Cells % 0.1 % (0-0); Platelets 245 thou/uL (152-406); RBC Red Blood Cell Count 2.72 M/uL (3.86-4.86); Red Cell Distribution Width 14.8 % (12.1-15.2)
[2024-06-23 06:08] LABS: Anion Gap 6.6 mEq/L (5.0-15.0); Potassium 3.6 mEq/L (3.5-5.1)
[2024-06-23] MEDS: ENOXAPARIN 40 MG/0.4 ML SQ SCH (07:22)
[2024-06-23] MEDS: DOCUSATE NA 100 MG CAP PO PRN (07:30)
--- NOTE | 2024-06-23 13:44 | P.PN ---
Subjective Date of Service: 06/23/24 Chief Complaint: History of fall Status post ORIF 06/22. Patient has no new complaint. She states her pain is well-controlled. Physical Examination - Vital Signs Temperature: 98.1 F Blood Pressure: 143/53 Pulse: 100 Respirations: 12 Pulse Ox (%): 99 Assessment And Plan - Plan Physical examination General: Alert and oriented x3, NAD, Heart: Heart sounds 1 and 2 normal, regular rhythm, normal rate, no pedal edema Lungs: Clear to auscultation bilaterally, adequate breath sounds bilaterally, no rhonchi or crackles. Abdomen: Soft, nondistended, nontender, normal bowel sounds. Skin: Normal skin turgor, no rash, no nodules or ulcers. Neuro: No focal motor deficit. Assessment and plan Displaced intertrochanteric fracture of right femur Orthopedic Dr. Ruff is following. Status post ORIF Analgesics as needed Optimize electrolytes. Continue PT. Patient is planned for skilled rehab placement. Raffy's disease Supportive measures Continue home medications. Hypokalemia Replace potassium Leukocytosis Anemia of chronic disease Leukocytosis resolved Status post 1 unit PRBC transfusion. Hemoglobin dropped from yesterday. Continue to monitor H&H. DVT prophylaxis: Lovenox Advanced directive: full code
[2024-06-24 05:49] LABS: Absolute Eosinophils 0.1 K/uL (0-0.5); Absolute Lymphocytes (CBC) 0.9 K/uL (0.7-4.9); Absolute Monocytes 0.9 K/uL (0.1-1.3); Absolute Neutrophil 5.9 K/uL (1.8-8.0); Basophils % 0.5 % (0-1.3); Eosinophils % 1.5 % (0-4.4); Hematocrit 23.6 % (36.0-45.0); Hemoglobin 8.1 g/dL (12.0-15.0); Lymphocytes % 11.8 % (15.3-44.8); MCH 31.1 pg (27.0-35.0); MCHC 34.6 g/dL (32.0-36.0); MCV 89.9 fL (80-100); MPV 8.4 fL (7.6-11.3); Monocytes % 11.7 % (3.3-12.3); Neutrophils % 74.5 % (41.7-73.7); Nucleated Red Blood Cells % 0.1 % (0-0); Platelets 276 thou/uL (152-406); RBC Red Blood Cell Count 2.62 M/uL (3.86-4.86); Red Cell Distribution Width 15.2 % (12.1-15.2)
[2024-06-24 06:01] LABS: Anion Gap 10.5 mEq/L (5.0-15.0); Potassium 3.5 mEq/L (3.5-5.1)
[2024-06-24] MEDS: POTASSIUM 25 MEQ EFFERV TAB PO ONE (09:00)
[2024-06-24] MEDS ORDERED: HOME MED 1 EA UNK (Rosuvastatin Calcium [Crestor] 20 MG Tablet) PO SCH (09:00)
[2024-06-24] MEDS: ROSUVASTATIN 10 MG TAB PO SCH (09:01)
--- NOTE | 2024-06-24 16:07 | P.PN ---
Subjective Date of Service: 06/24/24 Chief Complaint: History of fall Status post ORIF 06/22. Patient has no new complaint. Physical Examination - Vital Signs Temperature: 97.4 F Blood Pressure: 145/57 Pulse: 91 Respirations: 16 Pulse Ox (%): 98 Assessment And Plan - Plan Physical examination General: Alert and oriented x3, NAD, Heart: Heart sounds 1 and 2 normal, regular rhythm, normal rate, no pedal edema Lungs: Clear to auscultation bilaterally, adequate breath sounds bilaterally, no rhonchi or crackles. Abdomen: Soft, nondistended, nontender, normal bowel sounds. Skin: Normal skin turgor, no rash, no nodules or ulcers. Neuro: No focal motor deficit. Assessment and plan Displaced intertrochanteric fracture of right femur Orthopedic Dr. Ruff is following. Status post ORIF 06/22 Analgesics as needed Continue PT. Fall precautions Patient is planned for skilled rehab placement. Awaiting insurance authorization Raffy's disease Supportive measures Continue home medications. Family requesting for evaluation for capacity to make medical decisions and Nelson's disease. Dr. Vega has been made aware and recommended follow-up with him in the office as outpatient. Hypokalemia Replace potassium as needed. Leukocytosis Acute blood loss anemia Leukocytosis resolved Status post 1 unit PRBC transfusion for hemoglobin less than 8 preop. Continue to monitor H&H and transfuse as needed for hemoglobin less than 7. DVT prophylaxis: Lovenox Advanced directive: full code
[2024-06-25 08:00] LABS: Hematocrit 26.7 % (36.0-45.0); Hemoglobin 9.1 g/dL (12.0-15.0)
--- NOTE | 2024-06-25 10:04 | P.PN ---
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 Ruff, ortho is following. s/p ORIF (06/22) touchdown weightbearing on RLE per ortho Continue PT. 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 Dr. Vega has been made aware and recommended follow-up with him in the office as outpatient. Continue home medications, supportive measures Hypokalemia, improved monitor and replete electrolytes as needed Leukocytosis, resolved Acute blood loss anemia Leukocytosis resolved 06/21. s/p 1 unit PRBC transfusion (06/21) prior to surgery Monitor H&H. hgb stable in 8-9s last 24 hours VTE: Lovenox Code: Full Dispo: SNF - pending auth Time Spent Managing Pts Care (In Minutes): 39
[2024-06-25] MEDS: ACETAMINOPHEN 325 MG TABLET PO PRN (14:42)
[2024-06-25] MEDS: MELATONIN 5 MG TABLET PO PRN (22:19)
[2024-06-26 07:14] LABS: Hematocrit 28.9 % (36.0-45.0); Hemoglobin 9.8 g/dL (12.0-15.0)
--- NOTE | 2024-06-26 08:51 | P.PN ---
Date of Service: 06/26/24 Subjective: Feeling restless in bed. feels claustrophobin in room with door closed Wanting to get out of bed and ambulate around the ramirez working on transfers/balance with PT appetite okay. 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 Ruff, ortho is following. s/p ORIF (06/22) touchdown weightbearing on RLE per ortho Continue PT. 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 Dr. Vega has been made aware and recommended follow-up with him in the office as outpatient. Continue home medications, supportive measures Hypokalemia, improved monitor and replete electrolytes as needed Leukocytosis, resolved Acute blood loss anemia Leukocytosis resolved 06/21. s/p 1 unit PRBC transfusion (06/21) prior to surgery Monitor H&H. hgb stable in 8-9s last 24 hours VTE: Lovenox Code: Full Dispo: SNF - pending auth Time Spent Managing Pts Care (In Minutes): 39
[2024-06-26] MEDS: TRAMADOL HCL 50 MG TAB PO PRN (09:10)
--- NOTE | 2024-06-26 14:56 | P.PN ---
Subjective Date of Service: 06/25/24 Chief Complaint: History of fall Subjective: Working w/ PT Patient has had some confusion at night. Was informed by nursing that the patient has removed her bandage. Patient comfortable at this time. Physical Examination - Vital Signs Temperature: 96.9 F Blood Pressure: 133/63 Pulse: 98 Respirations: 15 Pulse Ox (%): 98 - Physical Exam General: In no apparent distress Musculoskeletal: Other (Examination of the right hip demonstrates bandage with minimal sanguinous drainage; neurovascular intact distally; mild swelling at the thigh) Assessment And Plan - Plan Bobo is a 58-year-old female status post right hip nail postoperative day #3 -PT to mobilize touchdown weightbearing right lower extremity -Acute expected postoperative blood loss anemia; continue to monitor H&H; patient has had 1 transfusion preoperatively -Lovenox for DVT prophylaxis -Await patient placement
[2024-06-27 06:20] LABS: Hematocrit 27.9 % (36.0-45.0); Hemoglobin 9.6 g/dL (12.0-15.0)
[2024-06-27 06:24] LABS: Anion Gap 8.4 mEq/L (5.0-15.0); Potassium 3.4 mEq/L (3.5-5.1)
[2024-06-27 08:01] VITALS: BP 137/63; TEMP 98.1
[2024-06-27] MEDS: POTASSIUM CL SA 10 MEQ TAB PO ONE (08:07)
--- NOTE | 2024-06-27 10:16 | P.PN ---
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 Ruff, ortho is following. s/p ORIF (06/22) touchdown weightbearing on RLE per ortho Continue PT. Fall precautions pain control Pending SNF auth Raffy's disease with dementia Family requested evaluation for capacity to make medical decisions given confusion/dementia in setting of [place]'s disease. Dr. Vega has been made aware and recommended follow-up with him in the office as outpatient. Continue home medications, supportive measures Hypokalemia, improved monitor and replete electrolytes as needed Leukocytosis, resolved Acute blood loss anemia Leukocytosis resolved 06/21. s/p 1 unit PRBC transfusion (06/21) prior to surgery Monitor H&H. hgb stable in 8-9s last 24 hours VTE: Lovenox Code: Full Dispo: SNF - pending auth Time Spent Managing Pts Care (In Minutes): 39
--- NOTE | 2024-06-27 10:48 | P.DS ---
Admission Date: 06/20/24 Discharge Date: 06/27/24 Disposition: TRANSFER TO SNF - REHAB Discharge Condition: GOOD Reason for Admission: History of fall Consultations: Ortho - Dr. Ruff Brief History of Present Illness: 58yo F, PMH; Black Hawk's chorea/disease Patient presented to the ED after sustaining a mechanical fall. Patient could not offer much history hence most of the history is obtained from chart review and also talking to the ER physician and the family at the bedside. Patient had a fall from standing position. Started having pain in her right hip. Family states that she was at home and fell by 7 PM and was found on ground complaining of right leg pain. Denies any chest pain or shortness of breath. No loss of consciousness denies any history of seizures Patient was assessed in the ER and was found to have Displaced intertrochanteric fracture of right femur-right and was admitted for further management . 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 Patient has Raffy's and is effecting her stability/coordination as well as mentation increasing her risk of falls. Patient was evaluated by Dr. Ruff, ortho, and underwent ORIF on 06/22. Patient did well post-operatively. She worked with PT throughout her stay, who recommended SNF to improve strength/endurance prior to returning home, to which patient/family were agreeable to. Patient was feeling better, hip pain improved and tolerable with oral pain medication and was deemed stable for discharge. Advised to follow up with Dr. Ruff in 1-2 weeks for further management. Touchdown weightbearing of right lower extremity until otherwise instructed by Dr. Ruff. During her hospitalization, patient's family requested evaluation for capacity to make medical decisions given confusion/dementia in setting of Black Hawk's disease. Dr. Vega, Neurology, was contacted and recommended to follow-up with him in the office as outpatient for full - evaluation. Medications: continue home medications as previously prescribed. Continue chemical DVT prophylaxis for 1 month post-operatively. Received lovenox while hospitalized. pain medication as needed Follow up: PCP 3-[address] Ruff in office in ~1-[address] Vega, neurologist, in near future Please call to schedule / confirm appointments Physical Exam: GEN: Alert, orientedx3, NAD HEENT: Normal conjunctiva, sclera anicteric CV: Regular rate and rhythm, no edema Pulm: Nonlabored respirations on room air, clear bilaterally ABD: soft, nontender, nondistended Integumentary: No rashes Neuro: confusion, dementia, moves all extremities spontaneously Vital Signs/Physical Exam: Temp Pulse Resp BP Pulse Ox 98.1 F 92 H 17 137/63 98 06/27/24 08:00 06/27/24 08:00 06/27/24 09:07 06/27/24 08:00 06/27/24 09:07 Laboratory Data at Discharge: WBC 7.90 thou/uL (4.3-10.9) 06/24/24 05:01 Hgb 9.6 g/dL (12.0-15.0) L 06/27/24 05:48 Hct 27.9 % (36.0-45.0) L 06/27/24 05:48 Plt Count 276 thou/uL (152-406) 06/24/24 05:01 PT 11.1 SECONDS (9.4-12.5) 06/19/24 23:02 INR 0.99 06/19/24 23:02 APTT 30.8 SECONDS (24.3-36.9) 06/19/24 23:02 Sodium 137 mEq/L (136-145) 06/27/24 05:48 Potassium 3.4 mEq/L (3.5-5.1) L 06/27/24 05:48 BUN 8 mg/dL (7-18) 06/27/24 05:48 Creatinine 0.43 mg/dL (0.55-1.02) L 06/27/24 05:48 Glucose 105 mg/dL (74-106) 06/27/24 05:48 Magnesium 2.1 mg/dL (1.6-2.4) 06/19/24 23:02 Total Bilirubin 1.2 mg/dL (0.2-1.0) H 06/21/24 07:35 AST 36 U/L (15-37) 06/21/24 07:35 ALT 22 U/L (13-56) 06/21/24 07:35 Alkaline Phosphatase 45 U/L (45-117) 06/21/24 07:35 Home Medications: Rimegepant Sulfate [Nurtec Odt] 1 tab PO PRN PRN 06/20/24 Rosuvastatin Calcium [Crestor] 20 mg PO DAILY 06/20/24 Docusate [Colace Cap*] 200 mg PO DAILY PRN cap 06/27/24 Enoxaparin Sodium [Lovenox 40 MG INJ*] 40 mg SQ DAILY #0 syr 06/27/24 Hydrocodone 5/APAP 325 [Lynn 5/325*] 1 tab PO Q4H PRN #0 tab 06/27/24 traMADol HCL [Ultram*] 50 mg PO Q6H PRN #0 tab 06/27/24 New Medications: Enoxaparin Sodium [Lovenox 40 MG INJ*] 40 mg SQ DAILY #0 syr Hydrocodone 5/APAP 325 [Lynn 5/325*] 1 tab PO Q4H PRN #0 tab PRN Reason: Pain Scale 8-10 (Severe) traMADol HCL [Ultram*] 50 mg PO Q6H PRN #0 tab PRN Reason: Pain Scale 5-7 (Moderate) Physician Discharge Instructions: Physician discharge instructions: Patient presented with right hip pain after sustaining a 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 Patient has Black Hawk's and is effecting her stability/coordination as well as mentation increasing her risk of falls. Patient was evaluated by Dr. Ruff, ortho, and underwent ORIF on 06/22. Patient did well post-operatively. She worked with PT throughout her stay, who recommended SNF to improve strength /endurance prior to returning home, to which patient/family were agreeable to. Patient was feeling better, hip pain improved and tolerable with oral pain medication and was deemed stable for discharge. Advised to follow up with Dr. Ruff in 1-2 weeks for further management. Touchdown weightbearing of right lower extremity until otherwise instructed by Dr. Ruff. . During her hospitalization, patient's family requested evaluation for capacity to make medical decisions given confusion/dementia in setting of Raffy's disease. Dr. Vega, Neurology, was contacted and recommended to follow-up with him in the office as outpatient for full - evaluation. Medications: continue home medications as previously prescribed. Continue chemical DVT prophylaxis for 1 month post-operatively. Received lovenox while hospitalized. pain medication as needed Follow up: PCP 3-[address] Ruff in office in ~1-[address] Vega, neurologist, in near future Please call to schedule / confirm appointments senior care facility: [facility] [address] [place] [address] [place] [address] P:[phone] F:[phone] Followup: NONE,NONE [Primary Care Provider] - Time spent managing pt's care (in minutes): 45
[2024-06-27 11:24] VITALS: O2SAT 94
== END 2024-06-27 12:23 | DRG 481 ==
LOC: ER 22:54 → ERHOLD 06-20 01:24 → 4TH 06-20 03:19
PROVIDERS: ADMIT Family Medicine; ATTEND Hospitalist
PROC: 30233N1 Transfusion of Nonautologous Red Blood Cells into Peripheral Vein, Percutaneous Approach (ICD-10-PCS; principal; 2024-06-21)
PROC: 0QS606Z Reposition Right Upper Femur with Intramedullary Internal Fixation Device, Open Approach (ICD-10-PCS; 2024-06-22)
DX: S72.141A Displaced intertrochanteric fracture of right femur, initial encounter for closed fracture (principal); D62 Acute posthemorrhagic anemia; G10 Huntington's disease; F02.80 Dementia in other diseases classified elsewhere, unspecified severity, without behavioral disturbance, psychotic disturbance, mood disturbance, and anxiety; E87.6 Hypokalemia; D63.8 Anemia in other chronic diseases classified elsewhere; D72.829 Elevated white blood cell count, unspecified; W18.30XA Fall on same level, unspecified, initial encounter; Y93.9 Activity, unspecified; Y92.019 Unspecified place in single-family (private) house as the place of occurrence of the external cause; Y99.9 Unspecified external cause status; Z79.899 Other long term (current) drug therapy; Z91.048 Other nonmedicinal substance allergy status; Z90.710 Acquired absence of both cervix and uterus
CPT/HCPCS: 36415; 70450; 71045; 72125; 72170; 80048; 80053; 80076; 81003; 83735; 84484; 85014; 85018; 85025; 85610; 85730; 86850; 86900; 86901; 86920; 93005; 94010; 94760; 96361; 96374; 96375; 97110; 97161; 97530; 99285; J0690; J1100; J1170; J1644; J1650; J2250; J2270; J2405; J2704; J3010; J3480; J7030; J7050; J7120; P9016

== ENCOUNTER 2024-08-17 06:57 | Emergency (ER) | payer OTHER ==
--- NOTE | 2024-08-17 07:52 | RAD REPORT ---
EXAM: Head Brain Wo Cont HISTORY: TRAUMA COMPARISON: 11/15/2014 TECHNIQUE: Multiple contiguous axial images were obtained for a CT of the brain without contrast. Sag ittal and coronal reformats were performed. One or more of the following dose reduction techniques were used: Automated exposure control, adjus tment of the mA and kV according to patient size, and iterative reconstruction. Unless otherwise specified, incidental findings do not require dedicated imaging follow-up. FINDINGS: No evidence of hydrocephalus, intracranial hemorrhage, or extra-axial fluid collection. The brain is normal in morphology. The calvarium is intact. The visualized paranasal sinuses and mastoid air cells are essentially clear . IMPRESSION: No evidence of acute intracranial abnormality.
--- NOTE | 2024-08-17 07:58 | ER ---
Nurse's Notes [facility] Name: Charissa Liz Age: 58 yrs Sex: Female : 1965 Arrival Date: 08/17/2024 Time: 06:57 Bed 17 Private MD: Diagnosis: Closed head injury, scalp hematoma Presentation: 08/17 07:06 Chief complaint: EMS states: they were toned out to [facility] [place] for an br2 unwitnessed fall. Coronavirus screen: At this time, the client does not indicate any symptoms associated with coronavirus-19. Ebola Screen: No symptoms or risks identified at this time. Initial Sepsis Screen: Does the patient meet any 2 criteria? HR > 90 bpm. Does the patient have a suspected source of infection? No. Patient's initial sepsis screen is negative. Risk Assessment: Do you want to hurt yourself or someone else? Patient reports no desire to harm self or others. Onset of symptoms was August 17, 2024. 07:06 Method Of Arrival: EMS: [facility] br2 07:06 Acuity: HARRY 3 br2 Historical: - Allergies: 07:07 Iodine; br2 - PMHx: 07:07 Raffy's Disease; Depressive disorder; hyperlipidemia; br2 - PSHx: 07:07 hysterectomy; br2 - Immunization history:: Adult Immunizations up to date. - Infectious Disease History:: Denies. - Social history:: Smoking status: Patient denies any tobacco usage or history of. Screenin:09 [facility] ED Fall Risk Assessment (Adult) History of falling in the last 3 months, kc6 including since admission Yes- single mechanical fall (1 pt) Confusion or Disorientation No (0 pts) Intoxicated or Sedated No (0 pts) Impaired Gait No (0 pts) Mobility Assist Device Used No (0 pt) Altered Elimination No (0 pt) Score/Fall Risk Level 0 - 2 = Low Risk Oriented to surroundings. Abuse screen: Denies threats or abuse. Denies injuries from another. Nutritional screening: No deficits noted. Tuberculosis screening: No symptoms or risk factors identified. Assessment: 07:09 General: Appears in no apparent distress. comfortable, slender, well groomed, well kc6 developed, Behavior is calm, cooperative, appropriate for age. Neuro: Level of Consciousness is awake, alert, obeys commands, Oriented to person, place, time, situation, Appropriate for age. Cardiovascular: Capillary refill < 3 seconds. Respiratory: Airway is patent Trachea midline Respiratory effort is even, unlabored, Respiratory pattern is regular, symmetrical. GI: No signs and/or symptoms were reported involving the gastrointestinal system. : No signs and/or symptoms were reported regarding the genitourinary system. EENT: No signs and/or symptoms were reported regarding the EENT system. Derm: No signs and/or symptoms reported regarding the dermatologic system. Skin is intact, is healthy with good turgor, Skin is pink, warm \T\ dry. Musculoskeletal: No signs and/or symptoms reported regarding the musculoskeletal system. Circulation, motion, and sensation intact. Capillary refill < 3 seconds, Range of motion: intact in all extremities. 07:22 Reassessment: pt reports falling out of her wheelchair while attempting to go to the [facility] bathroom. denies LOC, (-) blood thinners. MD made aware. Pain: Denies pain. 08:00 Reassessment: Patient appears in no apparent distress at this time. No changes from [facility] previously documented assessment. Patient and/or family updated on plan of care and expected duration. Pain level reassessed. Patient is alert, oriented x 3, equal unlabored respirations, skin warm/dry/pink. 08:04 Reassessment: attempted to call report to [facility]. on hold for 6min, no answer at this [facility] time. 08:30 Reassessment: attempted to call report to [facility]. on hold for 8min, no answer at this [facility] time. 08:34 Reassessment: nurse to nurse report given to Brianna at [facility]. states she will [facility] arrange transport back to the facility. Vital Signs: 07:06 BP 126 / 67; Pulse 100; Resp 16 S; Temp 98.1(O); Pulse Ox 100% on R/A; br2 08:00 BP 117 / 58; Pulse 72; Resp 16 S; Pulse Ox 100% on R/A; Pain 0/10; kc6 08:00 Pain Scale: Adult [facility] ED Course: 07:01 Patient arrived in ED. sj2 07:06 iLgia Rice RN is Primary Nurse. br2 07:07 Triage completed. br2 07:07 Arm band placed on. br2 07:09 Patient has correct armband on for positive identification. Bed in low position. Call kc6 light in reach. Side rails up X2. emergency room tech on. Pulse ox on. NIBP on. Door closed. Noise minimized. Lights dimmed. Warm blanket given. Pillow given. 07:09 Patient maintains SpO2 saturation greater than 95% on room air. kc6 07:11 Raghu Romero MD is Attending Physician. sp3 07:23 Provided Education on: use of call light for assistance. kc6 07:45 CT Head Brain wo Cont In Process Unspecified. EDMS 09:15 No provider procedures requiring assistance completed. Patient did not have IV access kc6 during this emergency room visit. Administered Medications: No medications were administered Medication: 09:15 VIS not applicable for this client. kc6 Outcome: 07:58 Discharge ordered by . sp3 09:15 Discharged to [facility]. Report called to Brianna [facility] 09:15 Condition: good 09:15 Discharge instructions given to patient, family, Instructed on discharge instructions, follow up and referral plans. Demonstrated understanding of instructions, follow-up care, 09:15 Patient left the ED. kc6 Signatures: Dispatcher [employer] EDAK Raghu Romero MD MD sp3 Destiny Rosa RN RN kc6 Ligia Rice RN RN br2 Maria Del Carmen Patton sj2 Corrections: (The following items were deleted from the chart) 07:22 07:09 Neuro: Level of Consciousness is awake, alert, obeys commands, kc6 kc6
--- NOTE | 2024-08-17 07:59 | EDPHYS ---
Physician Documentation [facility] Name: Charissa Liz Age: 58 yrs Sex: Female : 1965 Arrival Date: 08/17/2024 Time: 06:57 Bed 17 Private MD: ED Physician Raghu Romero HPI: 08/17 07:31 This 58 yrs old Female presents to ER via EMS with complaints of Fall Injury. sp3 07:31 58-year-old female with history of Raffy's disease, depression, hyperlipidemia sp3 presents to the ED with mechanical ground-level fall with injury to the occiput with hematoma there. No loss of consciousness or significant headache reported. Patient denies neck pain, medical prodromal event prior to the fall, chest pain, extremity pain or shortness of breath, abdominal pain or any other symptoms whatsoever. Remainder of ROS negative.. Historical: - Allergies: 07:07 Iodine; br2 - PMHx: 07:07 Raffy's Disease; Depressive disorder; hyperlipidemia; br2 - PSHx: 07:07 hysterectomy; br2 - Immunization history:: Adult Immunizations up to date. - Infectious Disease History:: Denies. - Social history:: Smoking status: Patient denies any tobacco usage or history of. ROS: 07:32 Constitutional: Negative for fever, chills, and weight loss, Eyes: Negative for injury, sp3 pain, redness, and discharge, Neck: Negative for injury, pain, and swelling, Cardiovascular: Negative for chest pain, palpitations, and edema, Respiratory: Negative for shortness of breath, cough, wheezing, and pleuritic chest pain, Abdomen/GI: Negative for abdominal pain, nausea, vomiting, diarrhea, and constipation, Back: Negative for injury and pain, MS/Extremity: Negative for injury and deformity, Skin: Negative for injury, rash, and discoloration, Neuro: Negative for headache, weakness, numbness, tingling, and seizure, Psych: Negative for depression, anxiety, suicide ideation, homicidal ideation, and hallucinations, Allergy/Immunology: Negative for hives, rash, and allergies, Endocrine: Negative for neck swelling, polydipsia, polyuria, polyphagia, and marked weight changes, 07:32 All other systems are negative, Exam: 07:32 Constitutional: This is a well developed, well nourished patient who is awake, alert, sp3 and in no acute distress. Eyes: Pupils equal round and reactive to light, extra-ocular motions intact. Lids and lashes normal. Conjunctiva and sclera are non-icteric and not injected. Cornea within normal limits. Periorbital areas with no swelling, redness, or edema. ENT: Nares patent. No nasal discharge, no septal abnormalities noted. External auditory canals are clear. Oropharynx with no redness, swelling, or masses, exudates, or evidence of obstruction, uvula midline. Mucous membranes moist. Neck: Trachea midline, no thyromegaly or masses palpated, and no cervical lymphadenopathy. Supple, full range of motion without nuchal rigidity, or vertebral point tenderness. No Meningismus. Chest/axilla: Normal chest wall appearance and motion. Nontender with no deformity. No lesions are appreciated. Cardiovascular: Regular rate and rhythm with a normal S1 and S2. No gallops, murmurs, or rubs. Normal PMI, no JVD. No pulse deficits. Respiratory: Lungs have equal breath sounds bilaterally, clear to auscultation and percussion. No rales, rhonchi or wheezes noted. No increased work of breathing, no retractions or nasal flaring. Abdomen/GI: Soft, non-tender, with normal bowel sounds. No distension or tympany. No guarding or rebound. No evidence of tenderness throughout. Back: No spinal tenderness. No costovertebral tenderness. Full range of motion. Skin: Warm, dry with normal turgor. Normal color with no rashes, no lesions, and no evidence of cellulitis. MS/ Extremity: Pulses equal, no cyanosis. Neurovascular intact. Full, normal range of motion. Neuro: Awake and alert, GCS 15, oriented to person, place, time, and situation. Cranial nerves II-XII grossly intact. Motor strength 5/5 in all extremities. Sensory grossly intact. Cerebellar exam normal. Normal gait. Psych: Awake, alert, with orientation to person, place and time. Behavior, mood, and affect are within normal limits. 07:32 Head/face: 3 cm x 4 cm hematoma noted to the posterior occiput. Cervical exam normal. Neurological exam normal except for Raffy's symptoms.. Vital Signs: 07:06 BP 126 / 67; Pulse 100; Resp 16 S; Temp 98.1(O); Pulse Ox 100% on R/A; br2 08:00 BP 117 / 58; Pulse 72; Resp 16 S; Pulse Ox 100% on R/A; Pain 0/10; kc6 08:00 Pain Scale: Adult kc6 MDM: 07:18 Patient medically screened. sp3 07:33 Data reviewed: vital signs, nurses notes. ED course: 58-year-old female with hematoma sp3 to the posterior occiput and a mechanical fall injury. Differential diagnosis includes hematoma versus skull fracture versus intracranial hemorrhage. CT scan of the head pending. If negative we will safely discharge patient home.. 07:57 ED course: CT scan negative we will discharge patient home at this time.. sp3 08/17 07:20 Order name: CT Head Brain wo Cont; Complete Time: 07:57 sp3 Administered Medications: No medications were administered Disposition Summary: 08/17/24 07:58 Discharge Ordered Notes: Location: Home sp3 Condition: Stable sp3 Diagnosis - Closed head injury, scalp hematoma sp3 Followup: sp3 - With: Private Physician - When: Upon discharge from the Emergency Department - Reason: Continuance of care Discharge Instructions: - Discharge Summary Sheet sp3 - Head Injury, Adult sp3 Forms: - Medication Reconciliation Form sp3 - Antibiotic Education sp3 - Prescription Opioid Use sp3 - Patient Portal Instructions sp3 - Leadership Thank You Letter sp3 Signatures: Dispatcher [employer] Raghu Rossi MD MD sp3 Ligia Rice, RN RN br2
[2024-08-17 09:19] VITALS: TEMP 98.1; O2SAT 100
[2024-08-17 09:21] VITALS: BP 117/58
== END 2024-08-17 09:15 | disposition home or self-care (01) ==
LOC: ER 06:57
DX: S00.03XA Contusion of scalp, initial encounter (principal); W18.30XA Fall on same level, unspecified, initial encounter
CPT/HCPCS: 70450; 99284

== ENCOUNTER 2024-09-01 07:10 | Emergency (ER) | payer OTHER ==
--- NOTE | 2024-09-01 08:04 | RAD REPORT ---
EXAM: CT brain without contrast HISTORY: TRAUMA COMPARISON: None TECHNIQUE: Multiple contiguous axial images were obtained and a CT of the brain without contrast. Sag ittal and coronal reformats were performed. FINDINGS:No evidence of hydrocephalus, intracranial hemorrhage, or extra-axial fluid collection. The brain is normal in morphology. The calvarium is intact. Right frontal scalp swelling and small hematoma. The visualized paranasal si nuses and mastoid air cells are essentially clear apart from moderate mucosal thickening and a small osteoma within the right ethmoidal air cells. IMPRESSION: No evidence of acute intracranial abnormality. Right frontal scalp swelling and small hematoma. EXAM: CT of the cervical spine without contrast HISTORY: TRAUMA COMPARISON: None TECHNIQUE: Multiple contiguous axial images were obtained in a CT of the cervical spine without contr ast. Sagittal and coronal reformats were performed. FINDINGS: The vertebral bodies demonstrate normal height and alignment. No evidence of acute fracture or subluxation.. Scattered mild to moderate degenerative changes are present without high-grade canal or foraminal stenosis. No prevertebral soft tissue swelling is seen. The posterior facets are well aligned. Normal alignment of the skull base with the cervical spine is seen. The lung apices are unremarkable. IMPRESSION: No evidence of acute osseous abnormality of the cervical spine.
--- NOTE | 2024-09-01 08:07 | ER ---
Nurse's Notes [facility] Name: Charissa Liz Age: 59 yrs Sex: Female : 1965 Arrival Date: 09/01/2024 Time: 07:10 Bed 19 Private MD: Diagnosis: Contusion of forehead Presentation: 09/01 07:12 Chief complaint: EMS states: "toned out for falling out of chair while at [facility]. Pt mb9 has small abrasion on right forehead and bruise. No LOC and does not take blood thinners.". Coronavirus screen: Vaccine status: Patient reports receiving the 2nd dose of the covid vaccine. Ebola Screen: No symptoms or risks identified at this time. Initial Sepsis Screen: Does the patient meet any 2 criteria? No. Patient's initial sepsis screen is negative. Does the patient have a suspected source of infection? No. Patient's initial sepsis screen is negative. Risk Assessment: Do you want to hurt yourself or someone else? Patient reports no desire to harm self or others. Onset of symptoms was September 01, 2024. 07:12 Acuity: HARRY 4 mb9 07:12 Method Of Arrival: EMS: [facility] mb9 Triage Assessment: 07:14 General: Appears in no apparent distress. Behavior is calm, cooperative. Pain: Denies mb9 pain. EENT: No signs and/or symptoms were reported regarding the EENT system. Neuro: Rivera Agitation-Sedation Scale (RASS): 0 - Alert and Calm Level of Consciousness is awake, alert, obeys commands, Oriented to person, place, time, situation, Appropriate for age Pupils are PERRLA. Cardiovascular: Patient's skin is warm and dry. Respiratory: Airway is patent Respiratory effort is even, unlabored, Respiratory pattern is regular, symmetrical. GI: No signs and/or symptoms were reported involving the gastrointestinal system. : No signs and/or symptoms were reported regarding the genitourinary system. Derm: Bruising that is dark purple, on forehead small abrasion to forehead. No bleeding noted. Musculoskeletal: Range of motion: intact in all extremities. Historical: - Allergies: 07:14 Iodine; mb9 - PMHx: 07:14 depressive disorder; Raffy's Disease; Hyperlipidemia; mb9 - PSHx: 07:14 hysterectomy; mb9 - Immunization history:: Adult Immunizations up to date. - Infectious Disease History:: Denies. - Family history:: not pertinent. - Social history:: Smoking status: Patient denies any tobacco usage or history of. Screenin:15 [facility] ED Fall Risk Assessment (Adult) History of falling in the last 3 months, mb9 including since admission Yes- fall prone (multiple falls) (3 pts) Confusion or Disorientation No (0 pts) Intoxicated or Sedated No (0 pts) Impaired Gait Yes (1 pt) Mobility Assist Device Used Yes (1 pt) Altered Elimination No (0 pt) Score/Fall Risk Level 3 or more points = High Risk Oriented to surroundings, Maintained a safe environment, Educated pt \\T\\ family on fall prevention, incl call for assistance when getting out of bed, Assessed \\T\\ reinforced patient's understanding of fall precautions, Provided non-skid footwear, Hourly rounding (assess needs \\T\\ fall precautionary measures) done. Abuse screen: Denies threats or abuse. Nutritional screening: No deficits noted. Tuberculosis screening: No symptoms or risk factors identified. Assessment: 07:15 Reassessment: see triage assessment. mb9 08:21 Reassessment: Gave report to Soraya at [facility]. States they will call back mb with ETA for transport. 08:34 Reassessment: D/C pending ride back to nursing facility. mb9 Vital Signs: 07:12 BP 136 / 72; Pulse 74; Resp 16; Temp 97.5; Pulse Ox 98% on R/A; Weight 52.16 kg; Height mb9 5 ft. 0 in. ; Pain 0/10; 08:14 BP 128 / 74; Pulse 68; Resp 16; Pulse Ox 100% ; mb9 07:12 Body Mass Index 22.46 (52.16 kg, 152.4 cm) mb9 07:12 Pain Scale: Adult mb9 ED Course: 07:12 Patient arrived in ED. mb9 07:12 Darian Figueroa MD is Attending Physician. rt 07:12 Arm band placed on. mb9 07:14 Triage completed. mb9 07:15 Bed in low position. Call light in reach. Side rails up X 1. Provided Education on: mb9 press call light if needing anything. Client placed on continuous cardiac and pulse oximetry monitoring. NIBP monitoring applied. Door closed. Noise minimized. Warm blanket given. Pillow given. 07:16 Noelle Streeter, RN is Primary Nurse. mb9 07:[address] via stretcher. mb9 07:32 CT Head C Spine In Process Unspecified. EDMS 08:14 No provider procedures requiring assistance completed. Patient did not have IV access dimas during this emergency room visit. 08:34 Wound care: to abrasion, located on forehead was cleaned with soap and water, soaked in mb9 dressed with Neosporin, band aid. Administered Medications: No medications were administered Medication: 07:16 VIS not applicable for this client. mb9 Outcome: 08:07 Discharge ordered by . rt 08:22 Discharged to alf. Report called to Soraya cochran 08:22 Condition: stable 08:22 Discharge instructions given to patient, Instructed on discharge instructions, follow up and referral plans. Demonstrated understanding of instructions, follow-up care, 09:02 Patient left the ED. mb9 Signatures: Dispatcher [employer] Noelle Armas, LÁZARO RN mb9 Darian Figueroa MD MD rt
--- NOTE | 2024-09-01 08:07 | EDPHYS ---
Physician Documentation [facility] Name: Charissa Liz Age: 59 yrs Sex: Female : 1965 Arrival Date: 09/01/2024 Time: 07:10 Bed 19 Private MD: ED Physician Darian Figueroa HPI: 09/01 07:13 This 59 yrs old Female presents to ER via Unassigned with complaints of head injury. rt 07:13 Patient presents to the ED with mechanical fall. Patient states that she lost her rt balance when standing up, hitting her forehead. Denies loss of consciousness, syncopal symptoms. Denies headache, neck pain. Denies other injury, other acute complaints, symptoms are mild in severity, no other aggravating or alleviating factors.. Historical: - Allergies: 07:14 Iodine; mb9 - PMHx: 07:14 depressive disorder; Raffy's Disease; Hyperlipidemia; mb9 - PSHx: 07:14 hysterectomy; mb9 - Immunization history:: Adult Immunizations up to date. - Infectious Disease History:: Denies. - Family history:: not pertinent. - Social history:: Smoking status: Patient denies any tobacco usage or history of. ROS: 07:13 Constitutional: Negative for fever, chills, and weight loss, Cardiovascular: Negative rt for chest pain, palpitations, and edema, Respiratory: Negative for shortness of breath, cough, wheezing, and pleuritic chest pain, Abdomen/GI: Negative for abdominal pain, nausea, vomiting, diarrhea, and constipation, MS/Extremity: Negative for injury and deformity, Skin: Negative for injury, rash, and discoloration, Neuro: Negative for headache, weakness, numbness, tingling, and seizure, Exam: 07:13 Constitutional: This is a well developed, well nourished patient who is awake, alert, rt and in no acute distress. Chest/axilla: Normal chest wall appearance and motion. Nontender with no deformity. No lesions are appreciated. Cardiovascular: Regular rate and rhythm with a normal S1 and S2. No gallops, murmurs, or rubs. Normal PMI, no JVD. No pulse deficits. Respiratory: Lungs have equal breath sounds bilaterally, clear to auscultation and percussion. No rales, rhonchi or wheezes noted. No increased work of breathing, no retractions or nasal flaring. Abdomen/GI: Soft, non-tender, with normal bowel sounds. No distension or tympany. No guarding or rebound. No evidence of tenderness throughout. Skin: Warm, dry with normal turgor. Normal color with no rashes, no lesions, and no evidence of cellulitis. MS/ Extremity: Pulses equal, no cyanosis. Neurovascular intact. Full, normal range of motion. 07:13 Head/face: Abrasion and contusion to the forehead, normocephalic, no other external evidence of trauma. 07:13 Neck: No posterior cervical midline tenderness, Vital Signs: 07:12 BP 136 / 72; Pulse 74; Resp 16; Temp 97.5; Pulse Ox 98% on R/A; Weight 52.16 kg; Height mb9 5 ft. 0 in. ; Pain 0/10; 08:14 BP 128 / 74; Pulse 68; Resp 16; Pulse Ox 100% ; mb9 07:12 Body Mass Index 22.46 (52.16 kg, 152.4 cm) mb9 07:12 Pain Scale: Adult mb9 MDM: 07:12 Medical Screening Exam initiated rt 08:07 Differential Diagnosis Closed head injury, intracranial hemorrhage. Data reviewed: rt vital signs, nurses notes, radiologic studies. Independent interpretation of the following test(s) in the Emergency Department CT Scan: My interpretation is No intracranial hemorrhage seen on my interpretation of CT scan images. Test considered but Not performed: Other Details Denies loss of consciousness, near syncopal symptoms, EKG, labs are not indicated. 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 Counseling: I had a detailed discussion with the patient and/or guardian regarding the historical points, exam findings, and any diagnostic results supporting the discharge/admit diagnosis, radiology results, the need for outpatient follow up. 09/01 07:13 Order name: CT Head C Spine; Complete Time: 08:04 rt Administered Medications: No medications were administered Disposition Summary: 09/01/24 08:07 Discharge Ordered Notes: Location: Home rt Condition: Stable rt Diagnosis - Contusion of forehead rt Followup: rt - With: Private Physician - When: 2 - 3 days - Reason: Discharge Instructions: - Discharge Summary Sheet rt - Facial or Scalp Contusion rt Forms: - Medication Reconciliation Form rt - Antibiotic Education rt - Prescription Opioid Use rt - Patient Portal Instructions rt - Leadership Thank You Letter rt Signatures: Dispatcher Noelle Rincon RN RN mb9 Darian Figueroa MD MD rt
[2024-09-01 10:49] VITALS: TEMP 97.5
[2024-09-01 10:50] VITALS: BP 128/74; O2SAT 100
== END 2024-09-01 09:02 | disposition home or self-care (01) ==
LOC: ER 07:10
DX: S00.83XA Contusion of other part of head, initial encounter (principal); W18.30XA Fall on same level, unspecified, initial encounter
CPT/HCPCS: 70450; 72125; 99284